=== PATIENT | female | born 1945 | race Caucasian/White ===

== ENCOUNTER 2017-02-06 07:57 | Emergency (ER) | payer MEDICARE, OTHER ==
[~2017-02-06] VITALS: Ht 182.9 cm; Wt 87.0 kg
[~2017-02-06 07:57] MED LIST: ATENOLOL25 MG PO; CO Q 1010 MG; CRESTOR5 MG PO; MULTI VIT PO; NEURONTIN600 MG PO; VITAMI17; VITAMIN B-12100 MCG; XANAX1 MG PO; ZPAK OR
[2017-02-06] MEDS ORDERED: PANTOPRAZOLE SO40 MG PO (08:17)
[2017-02-06] MEDS ORDERED: PRAMIPEXOLE0.5 MG PO (08:18)
[2017-02-06] MEDS ORDERED: LOSARTAN POTASS50 MG PO (08:19)
[2017-02-06] MEDS ORDERED: CELEBREX100 M1 PO (08:22)
[2017-02-06] MEDS ORDERED: PLAVIX75 MG PO (08:23)
[2017-02-06] MEDS ORDERED: ASPIRIN81 MG PO (08:23)
[2017-02-06] MEDS ORDERED: TRAZODONE50 MG PO (08:24)
[2017-02-06] MEDS ORDERED: CEPHALEXIN500 MG PO (09:58)
[2017-02-06 10:16] VITALS: BP 147/65
== END 2017-02-06 10:24 | disposition home or self-care (01) ==
LOC: ED 07:57
PROC: 0HCNXZZ Extirpation of Matter from Left Foot Skin, External Approach (ICD-10-PCS; principal; 2017-02-06)
DX: S91.342A Puncture wound with foreign body, left foot, initial encounter (principal); G62.9 Polyneuropathy, unspecified; W22.8XXA Striking against or struck by other objects, initial encounter; Y92.003 Bedroom of unspecified non-institutional (private) residence as the place of occurrence of the external cause

== ENCOUNTER 2017-08-07 11:41 | Observation (INO) | payer MEDICARE, OTHER ==
[~2017-08-07] VITALS: Ht 182.9 cm; Wt 94.8 kg
[~2017-08-07 11:41] MED LIST changes: +ASPIRIN81 MG PO; +CELEBREX100 M1 PO; +CEPHALEXIN500 MG PO; +LOSARTAN POTASS50 MG PO; +PANTOPRAZOLE SO40 MG PO; +PLAVIX75 MG PO; +PRAMIPEXOLE0.5 MG PO; +TRAZODONE50 MG PO
[2017-08-07 12:37] LABS: URINE BILIRUBIN - DIPSTICK NEGATIVE (NEGATIVE); URINE BLOOD DIPSTICK NEGATIVE (NEGATIVE); URINE COLOR YELLOW; URINE GLUCOSE - DIPSTICK 250 mg/dL (NEGATIVE); URINE KETONE NEGATIVE (NEGATIVE); URINE LEUK ESTERASE NEGATIVE (NEGATIVE); URINE NITRITE - DIPSTICK NEGATIVE (Negative); URINE PH 5.5 (4.5-8.0); URINE PROTEIN - DIPSTICK NEGATIVE (NEG-TRACE); URINE SPECIFIC GRAVITY 1.025; URINE UROBILINOGEN - DIPSTICK 0.2 E.U./dL (0.2)
[2017-08-07 12:40] LABS: HEMATOCRIT 44.1 % (37.0-47.0); IMMATURE GRANULOCYTES 0.4 % (0.0-1.0); MEAN CELL VOLUME 94.2 fL CALC (80.0-100.0); MEAN CORPUSCULAR HGB 32.1 pG CALC (26.0-32.0); NEUT# 5.25 thou/uL (2.00-7.15); RED BLOOD COUNT 4.68 mill/uL (4.20-5.60); RED CELL DISTRI WIDTH 13.8 % (11.5-15.5); URINE CLARITY CLEAR
[2017-08-07 12:54] LABS: ANION GAP 16 (6-22 (CALC)); BUN 21 mg/dL (8-23); BUN/CREATININE RATIO 31 (12-20 (CALC)); CARBON DIOXIDE 24 mmol/l (22-30); CHLORIDE 108 mmol/l (95-108); CREATININE 0.7 mg/dL (0.5-1.0); GFR > 60 ML/MIN (>=60 (CALC)); GFR FOR AFR.AMER. > 60 ML/MIN (>=60 (CALC)); LIPASE 66 u/l (23-300); POTASSIUM 4.2 mmol/l (3.5-5.1); SODIUM 143 mmol/l (137-146)
[2017-08-07 12:55] LABS: ALBUMIN 4.5 g/dL (3.2-5.0); ANION GAP 17 (6-22 (CALC)); BILIRUBIN, TOTAL 0.6 mg/dL (0.0-1.4); BUN 21 mg/dL (8-23); BUN/CREATININE RATIO 28 (12-20 (CALC)); CARBON DIOXIDE 24 mmol/l (22-30); CHLORIDE 107 mmol/l (95-108); CREATININE 0.7 mg/dL (0.5-1.0); GFR > 60 ML/MIN (>=60 (CALC)); GFR FOR AFR.AMER. > 60 ML/MIN (>=60 (CALC)); POTASSIUM 4.1 mmol/l (3.5-5.1); SGPT/ALT 82 u/l (11-66); SODIUM 143 mmol/l (137-146); TOTAL PROTEIN 7.2 g/dL (6.3-8.2)
[2017-08-07 13:04] LABS: ALKALINE PHOSPHATASE 100 u/l (38-126); SGOT/AST 106 u/l (9-36)
[2017-08-07 13:06] LABS: MYOGLOBIN 41 ng/mL (0 - 62)
[2017-08-07 17:48] VITALS: BP 144/86
[2017-08-07] MEDS ORDERED: AMOXICILLIN500 MG PO (18:20)
[2017-08-07 20:00] VITALS: BP 133/78
[2017-08-08 00:04] VITALS: BP 127/67
[2017-08-08 04:48] LABS: ALBUMIN 3.6 g/dL (3.2-5.0); ALKALINE PHOSPHATASE 81 u/l (38-126); ANION GAP 14 (6-22 (CALC)); BUN 17 mg/dL (8-23); BUN/CREATININE RATIO 23 (12-20 (CALC)); CARBON DIOXIDE 23 mmol/l (22-30); CHLORIDE 110 mmol/l (95-108); CREATININE 0.7 mg/dL (0.5-1.0); GFR > 60 ML/MIN (>=60 (CALC)); GFR FOR AFR.AMER. > 60 ML/MIN (>=60 (CALC)); POTASSIUM 3.8 mmol/l (3.5-5.1); SGOT/AST 47 u/l (9-36); SGPT/ALT 63 u/l (11-66); SODIUM 143 mmol/l (137-146); TOTAL PROTEIN 5.9 g/dL (6.3-8.2)
[2017-08-08 04:59] LABS: HEMATOCRIT 41.2 % (37.0-47.0); HEMOGLOBIN 13.9 g/dl (12.0-16.0); IMMATURE GRANULOCYTES 0.5 % (0.0-1.0); MEAN CELL VOLUME 94.5 fL CALC (80.0-100.0); MEAN CORPUSCULAR HGB 31.9 pG CALC (26.0-32.0); MEAN CORPUSCULAR HGB CONC 33.7 g/L CALC (32.0-36.0); NEUT# 3.16 thou/uL (2.00-7.15); RED BLOOD COUNT 4.36 mill/uL (4.20-5.60); RED CELL DISTRI WIDTH 13.5 % (11.5-15.5)
[2017-08-08 05:00] LABS: BILIRUBIN, TOTAL 0.9 mg/dL (0.0-1.4)
[2017-08-08 05:13] VITALS: BP 98/66
[2017-08-08 07:45] VITALS: BP 131/77
[2017-08-08 09:48] LABS: CHOLESTEROL HDL RATIO 3.3 (<4.4 (CALC))
[2017-08-08] MEDS ORDERED: CLOPIDOGREL75 MG PO (10:08)
[2017-08-08] MEDS ORDERED: BIOTIN5000 MC2 PO (10:09)
[2017-08-08] MEDS ORDERED: CELEBREX200 MG PO (10:10)
[2017-08-08] MEDS ORDERED: ATENOLOL50 MG PO (10:10)
[2017-08-08] MEDS ORDERED: GABAPENTIN100 MG PO (10:11)
[2017-08-08] MEDS ORDERED: LOSARTAN POT50 MG PO (10:14)
[2017-08-08] MEDS ORDERED: ROSUVASTATIN CA20 MG PO (10:14)
[2017-08-08] MEDS ORDERED: PRAMIPEXOLE0.5 MG PO (10:15)
[2017-08-08] MEDS ORDERED: MELATONIN MAXIM10 MG PO (10:17)
[2017-08-08] MEDS ORDERED: COQ-10400 MG PO (10:18)
[2017-08-08] MEDS ORDERED: VITAMIN D32000 UNI2 PO (10:19)
[2017-08-08] MEDS ORDERED: K-99595 MG PO (10:20)
[2017-08-08] MEDS ORDERED: GNP MELATONIN MA5 MG PO (10:21)
[2017-08-08] MEDS ORDERED: CHANTIX1 MG PO (10:23)
[2017-08-08] MEDS ORDERED: TURMERIC500 MG PO (10:24)
[2017-08-08 11:10] VITALS: BP 150/76
[2017-08-08] MEDS ORDERED: PEPCID20 MG PO (11:12)
== END 2017-08-08 13:24 | disposition home or self-care (01) ==
LOC: ED 11:41 → ED-I 16:40 → ED 16:55 → MS2 16:56
PROVIDERS: Family Medicine; Nurse Practitioner Family; ADMIT Internal Medicine; ATTEND Internal Medicine
DX: R07.9 Chest pain, unspecified (principal); I16.0 Hypertensive urgency; I10 Essential (primary) hypertension; K21.9 Gastro-esophageal reflux disease without esophagitis; G62.9 Polyneuropathy, unspecified; F17.210 Nicotine dependence, cigarettes, uncomplicated; E78.5 Hyperlipidemia, unspecified; K57.30 Diverticulosis of large intestine without perforation or abscess without bleeding

== ENCOUNTER 2019-08-14 12:12 | Observation (INO) | payer MEDICARE, OTHER ==
[~2019-08-14] VITALS: Ht 182.9 cm; Wt 96.0 kg
[~2019-08-14 12:12] MED LIST changes: +AMOXICILLIN500 MG PO; +ATENOLOL50 MG PO; +BIOTIN5000 MC2 PO; +CELEBREX200 MG PO; +CHANTIX1 MG PO; +CLOPIDOGREL75 MG PO; +COQ-10400 MG PO; +GABAPENTIN100 MG PO; +GNP MELATONIN MA5 MG PO; +K-99595 MG PO; +LOSARTAN POT50 MG PO; +MELATONIN MAXIM10 MG PO; +PEPCID20 MG PO; +ROSUVASTATIN CA20 MG PO; +TURMERIC500 MG PO; +VITAMIN D32000 UNI2 PO
[2019-08-14 13:37] LABS: HEMATOCRIT 47.1 % (37.0-47.0); HEMOGLOBIN 15.7 g/dl (12.0-16.0); IMMATURE GRANULOCYTES 0.3 % (0.0-5.0); MEAN CELL VOLUME 95.3 fL CALC (80.0-100.0); MEAN CORPUSCULAR HGB 31.8 pG CALC (26.0-32.0); MEAN CORPUSCULAR HGB CONC 33.3 g/L CALC (32.0-36.0); NEUT# 4.5 thou/uL (2.00-7.15); RED BLOOD COUNT 4.94 mill/uL (4.20-5.60); RED CELL DISTRI WIDTH 15.3 % (11.5-15.5)
[2019-08-14] MEDS ORDERED: TOLTERODINE TART2 MG PO ×2 (13:53→13:56)
[2019-08-14] MEDS ORDERED: ZETIA10 MG PO (13:54)
[2019-08-14] MEDS ORDERED: METOPROL TAR25 MG PO (13:54)
[2019-08-14] MEDS ORDERED: CITALOPRAM20 M1 (13:55)
[2019-08-14] MEDS ORDERED: ISOSORB DIN30 MG PO (13:55)
[2019-08-14] MEDS ORDERED: PLAVIX75 MG PO (13:57)
[2019-08-14] MEDS ORDERED: ASPIRIN325 MG PO (13:58)
[2019-08-14 14:13] LABS: ALBUMIN 4.2 g/dL (3.2-5.0); ALKALINE PHOSPHATASE 52 u/l (38-126); ANION GAP 11 (6-22 (CALC)); BILIRUBIN, TOTAL 1.2 mg/dL (0.0-1.4); BUN 18 mg/dL (8-23); BUN/CREATININE RATIO 22 (12-20 (CALC)); CARBON DIOXIDE 24 mmol/l (22-30); CHLORIDE 108 mmol/l (95-108); CREATININE 0.8 mg/dL (0.5-1.0); GFR > 60 ML/MIN (>=60 (CALC)); GFR FOR AFR.AMER. > 60 ML/MIN (>=60 (CALC)); POTASSIUM 4.1 mmol/l (3.5-5.1); SGOT/AST 40 u/l (9-36); SODIUM 139 mmol/l (137-146)
[2019-08-14 18:35] VITALS: BP 109/60
[2019-08-15 00:09] VITALS: BP 107/68
[2019-08-15 04:32] VITALS: BP 102/66
[2019-08-15 06:14] LABS: CHOLESTEROL HDL RATIO 2.2 (<4.4 (CALC)); MAGNESIUM 2.2 mg/dL (1.6-2.3)
[2019-08-15 07:36] VITALS: BP 133/64
[2019-08-15] MEDS ORDERED: NITROSTAT0.4 MG SL (11:11)
[2019-08-15 12:04] VITALS: BP 117/74
== END 2019-08-15 12:44 | disposition home or self-care (01) ==
LOC: ED 12:12 → ED-I 14:00 → ED 15:10 → MS2 15:11
PROVIDERS: Family Medicine; ADMIT Internal Medicine; ATTEND Internal Medicine
DX: R07.9 Chest pain, unspecified (principal); I25.10 Atherosclerotic heart disease of native coronary artery without angina pectoris; I10 Essential (primary) hypertension; K21.9 Gastro-esophageal reflux disease without esophagitis; E78.5 Hyperlipidemia, unspecified; G62.9 Polyneuropathy, unspecified; F17.200 Nicotine dependence, unspecified, uncomplicated; I25.2 Old myocardial infarction; Z95.5 Presence of coronary angioplasty implant and graft; Z79.02 Long term (current) use of antithrombotics/antiplatelets; Z79.82 Long term (current) use of aspirin; Z79.899 Other long term (current) drug therapy
CPT/HCPCS: G0378

== ENCOUNTER 2019-12-01 18:15 | Emergency (ER) | payer MEDICARE, OTHER ==
[~2019-12-01] VITALS: Ht 180.3 cm; Wt 89.5 kg
[~2019-12-01 18:15] MED LIST changes: +ASPIRIN325 MG PO; +CITALOPRAM20 M1; +ISOSORB DIN30 MG PO; +METOPROL TAR25 MG PO; +NITROSTAT0.4 MG SL; +TOLTERODINE TART2 MG PO; +ZETIA10 MG PO
[2019-12-01] MEDS ORDERED: ASPIRIN CHEWABL81 MG PO (18:34)
[2019-12-01] MEDS ORDERED: KLONOPIN0.5 M1 PO (18:35)
[2019-12-01] MEDS ORDERED: CRESTOR20 MG PO (18:36)
[2019-12-01] MEDS ORDERED: LASIX 40 MG TAB40 MG PO (18:36)
[2019-12-01] MEDS ORDERED: TOPROL XL50 MG PO (18:38)
[2019-12-01] MEDS ORDERED: PROTONIX40 M2 PO (18:39)
[2019-12-01 18:55] VITALS: BP 123/87
== END 2019-12-01 18:55 | disposition home or self-care (01) ==
LOC: ED 18:15
PROC: 0HQGXZZ Repair Left Hand Skin, External Approach (ICD-10-PCS; principal; 2019-12-01)
DX: S61.213A Laceration without foreign body of left middle finger without damage to nail, initial encounter (principal); I10 Essential (primary) hypertension; G62.9 Polyneuropathy, unspecified; F17.210 Nicotine dependence, cigarettes, uncomplicated; I25.2 Old myocardial infarction; W26.0XXA Contact with knife, initial encounter; Y93.G1 Activity, food preparation and clean up; Y92.000 Kitchen of unspecified non-institutional (private) residence as the place of occurrence of the external cause

== ENCOUNTER 2020-11-02 10:49 | Observation (INO) | payer MEDICARE, OTHER ==
[~2020-11-02] VITALS: Ht 177.8 cm; Wt 97.0 kg
[~2020-11-02 10:49] MED LIST changes: +ASPIRIN CHEWABL81 MG PO; +CRESTOR20 MG PO; +KLONOPIN0.5 M1 PO; +LASIX 40 MG TAB40 MG PO; +PROTONIX40 M2 PO; +TOPROL XL50 MG PO
--- NOTE | 2020-11-02 10:49 | NUR ---
TO ROOM FOR BEDSIDE TRIAGE VIA EMS
--- NOTE | 2020-11-02 11:30 | NUR ---
TREATMENTS COMPLETED AND WAS UNABLE TO ESTABLISH AN IV AT THIS TIME. LIMB ELEVATED. TWO HEMATOMAS NOTED ON THE TOP AND BOTTOM OF R EYE NOTED AND AN ABRASION NOTED ON THE BOTTOM OF THE R EYE. THE R KNEE IS SEVERLY ENGORGED WITH A HUGE HEMATOMA THAT IS BRUISED. PT IS HAVING SPASMS IN THE R LEG. AOX4. PERRLA. NO BLEEDING APPARENT IN ANY PART OF THE BODY.
[2020-11-02 11:41] LABS: HEMATOCRIT 44.6 % (37.0-47.0); HEMOGLOBIN 15.1 g/dl (12.0-16.0); IMMATURE GRANULOCYTES 0.1 % (0.0-5.0); MEAN CELL VOLUME 96.3 fL CALC (80.0-100.0); MEAN CORPUSCULAR HGB 32.6 pG CALC (26.0-32.0); MEAN CORPUSCULAR HGB CONC 33.9 g/dL CAL (32.0-36.0); NEUT# 5.64 thou/uL (2.00-7.15); RED BLOOD COUNT 4.63 mill/uL (4.20-5.60); RED CELL DISTRI WIDTH 13.2 % (11.5-15.5)
[2020-11-02 12:00] LABS: ALBUMIN 4.1 g/dL (3.2-5.0); ALKALINE PHOSPHATASE 69 u/l (38-126); ANION GAP 9 (6-22 (CALC)); BILIRUBIN, TOTAL 0.9 mg/dL (0.0-1.4); BUN 13 mg/dL (8-23); BUN/CREATININE RATIO 17 (12-20 (CALC)); CARBON DIOXIDE 26 mmol/l (22-30); CHLORIDE 104 mmol/l (95-108); CREATININE 0.8 mg/dL (0.5-1.0); GFR > 60 ML/MIN (>=60 (CALC)); GFR FOR AFR.AMER. > 60 ML/MIN (>=60 (CALC)); POTASSIUM 4.1 mmol/l (3.5-5.1); SGOT/AST 30 u/l (9-36); SODIUM 135 mmol/l (137-146); TOTAL PROTEIN 7.1 g/dL (6.3-8.2)
--- NOTE | 2020-11-02 12:20 | NUR ---
PT RECONNECTED TO MONITORING EQUIPMENT. PT RESTING ON THE STETCHER CONTINUES IN PAIN. EDU ON HOW LONG IT TAKES FOR IM MORPHINE TO START WORKING. A FRIEND OF HERS CONTINUES AT HER BEDSIDE
[2020-11-02 13:02] LABS: URINE BILIRUBIN - DIPSTICK NEGATIVE (NEGATIVE); URINE BLOOD DIPSTICK SMALL (NEGATIVE); URINE COLOR YELLOW; URINE GLUCOSE - DIPSTICK NEGATIVE (NEGATIVE); URINE KETONE NEGATIVE (NEGATIVE); URINE LEUK ESTERASE NEGATIVE (NEGATIVE); URINE PROTEIN - DIPSTICK NEGATIVE (NEG-TRACE); URINE SPECIFIC GRAVITY 1.015; URINE UROBILINOGEN - DIPSTICK 0.2 E.U./dL (0.2)
[2020-11-02 13:03] LABS: URINE NITRITE - DIPSTICK NEGATIVE (Negative)
[2020-11-02 13:04] LABS: URINE SQUAMOUS EPITHELIAL CELL FEW EPI/hpf (0-FEW); URINE WBC 0-2 WBC/hpf (0-5)
[2020-11-02] MEDS ORDERED: MULTI VIT PO (13:22)
[2020-11-02] MEDS ORDERED: LOSARTAN POTASS25 MG PO (13:22)
--- NOTE | 2020-11-02 13:40 | NUR ---
MD TRIED TO DRAIN SOME BLOOD OUT OF THE R KNEE. MINIMAL AMOUNT RETRIEVED. COMPRESSION DRESSING APPLIED, PMS+ IN THAT EXTREM. ICE APPLIED TO KNEE. KNEE CONTINUES TO BE ELEVATED
--- NOTE | 2020-11-02 14:49 | NUR ---
PT RESTING ON STRETCHER WITH FRIEND AT BEDSIDE. CALL LIGHT WITHIN REACH
--- NOTE | 2020-11-02 15:05 | NUR ---
REPORT RECEIVED FROM AMARARN
--- NOTE | 2020-11-02 15:10 | NUR ---
GAVE REPORT TO YESIKA
--- NOTE | 2020-11-02 15:20 | NUR ---
PT TRANSPORTED TO [facility] SURG STABLE AND IN NO DISTRESS. CARE ASSUMED TO REGGIE. Admission Note Report Given to: REGGIE Transported by: Wheelchair X Stretcher Transported with: X Nurse Transporter X Patent IV O2 X Design Director Location: ICU X MS2
[2020-11-02 15:25] VITALS: BP 133/80
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
--- NOTE | 2020-11-02 15:59 | NUR ---
NEW ORDERS RECEIVED FROM
--- NOTE | 2020-11-02 16:04 | NUR ---
XRAY AT BEDSIDE
--- NOTE | 2020-11-02 16:40 | NUR ---
PT MEDICATED WITH PRN LORTAB 5/325MG PO FOR RIGHT KNEE PAIN RATING 7/10 ON THE PAIN SCALE,WILL CONTINUE TO MONITOR FOR EFFECTIVENESS
--- NOTE | 2020-11-02 18:50 | NUR ---
REPORT RECEIVED FROM Oma GARVIN LPN, CARE OF PT ASSUMED AT THIS TIME.
[2020-11-02 19:15] VITALS: BP 123/77
--- NOTE | 2020-11-02 19:15 | NUR ---
PT SITTING UP IN BED FINISHING MEAL TRAY. PHYSICAL ASSESMENT COMPLETE. RIGHT SIDE PERIORBITAL EDEMA AND ECCHYMOSIS NOTED. RIGHT EYE IS SWOLLEN SHUT. RIGHT KNEE ELEVATED WITH COMPRESSION BANDAGE SECURED AND COLD COMPRESS OVER TOP. RLE C/M/S PRESENT AND INTACT. LUE #20G IV PATENT AND INFUSING 0.9% NACL @ 100ML/H. TELE #[id number] ON PT. PLAN OF CARE REVIEWED, VERBALIZES UNDERSTANDING. DENIES FURTHER NEEDS AT THIS TIME WHEN ASKED. CALL PEÑA WITHIN REACH, AGREES TO CALL PRN.
--- NOTE | 2020-11-02 19:31 | NUR ---
ORDERS FOR PT & OT CONSULT AND AM CBC, BMP, MG RECEIVED AND AKNOWLEGED VIA [employer].
--- NOTE | 2020-11-02 20:50 | NUR ---
PT ASSISTED TO STAND AND PIVOT TO BED SIDE COMMODE AND BACK TO BED. 400ML CLEAR YELLOW URINE EMPTIED FROM COMMODE.
--- NOTE | 2020-11-02 21:00 | NUR ---
EDUCATION PROVIDED ON PRN LORTAB FOR PAIN, PT VERBALIZES UNDERSTANDING. HOME MEDICATION LIST REVIEWED AND DISCUSSED WITH PT WHICH MEDICATIONS PROVIDER HAS CONTINUED AND HELD. PT VERBALIZES UNDERSTANDING. SCHEDULED MEDICATION ADMINISTERED, PRN LORTAB ADMINISTERED FOR C/O THROBBING PAIN TO R-PERIORBITAL AREA, R-WRIST, AND R-KNEE.
--- NOTE | 2020-11-02 21:30 | NUR ---
F/U PAIN LEVEL REPORTED 0/10.
[2020-11-03] VITALS: BP 99/51
--- NOTE | 2020-11-03 02:46 | NUR ---
PT REQUEST PAIN MEDICATION FOR R-KNEE SPASM 11/20. RLE C/M/S REMAINS INTACT. COMPRESSION BANDAGE IN PLACE. LORTAB ADMINISTERED, SEE E-MAR.
--- NOTE | 2020-11-03 03:17 | NUR ---
PT APPEARS TO BE SLEEPING COMFORTABLY, LAYING IN BED WITH EYES CLOSED, RESPIRATIONS REGUALR AND UNLABORED. NO APPARENT DISTRESS OR DISCOMFORT. CALL PEÑA REMAINS WITHIN REACH.
[2020-11-03 04:00] VITALS: BP 120/68
--- NOTE | 2020-11-03 05:05 | NUR ---
Belem GRAMAJO CONCRETE MIXER LOADER TRUCK MOUNTED AT BEDSIDE COLLECTING AM LABS.
[2020-11-03 05:46] LABS: HEMATOCRIT 41.8 % (37.0-47.0); HEMOGLOBIN 13.8 g/dl (12.0-16.0); MEAN CELL VOLUME 99.1 fL CALC (80.0-100.0); MEAN CORPUSCULAR HGB 32.7 pG CALC (26.0-32.0); RED BLOOD COUNT 4.22 mill/uL (4.20-5.60); RED CELL DISTRI WIDTH 13.5 % (11.5-15.5)
[2020-11-03 06:02] LABS: ANION GAP 9 (6-22 (CALC)); BUN 18 mg/dL (8-23); BUN/CREATININE RATIO 24 (12-20 (CALC)); CARBON DIOXIDE 24 mmol/l (22-30); CHLORIDE 108 mmol/l (95-108); CREATININE 0.8 mg/dL (0.5-1.0); GFR > 60 ML/MIN (>=60 (CALC)); GFR FOR AFR.AMER. > 60 ML/MIN (>=60 (CALC)); MAGNESIUM 2.2 mg/dL (1.6-2.3); POTASSIUM 4.1 mmol/l (3.5-5.1); SODIUM 137 mmol/l (137-146)
[2020-11-03 07:25] VITALS: BP 149/84
--- NOTE | 2020-11-03 09:50 | NUR ---
PT SEEN AWAKE, ALERT, ORIENTED X 3. LUNGS CLEAR, RA. PT WITH PAIN TO RIGHT KNEE, RIGHT EYE, RIGHT HAND PER FALL RECENTLY, MEDICATED NEEDED. DAUGHTER HAS CALLED FOR UPDATE, PROVIDED. AT THIS TIME PT IS AT CT SCAN FOR FOLLOW UP HEAD SCAN.
[2020-11-03 10:46] VITALS: BP 117/70
--- NOTE | 2020-11-03 15:01 | NUR ---
PT HAS HAD PHYSICAL THERAPIST AND OCCUPATIONAL THERAPIST AT BEDSIDE TODAY. PT AMBULATES WITH DISCOMFORT TO RIGHT KNEE.
[2020-11-03 15:17] VITALS: BP 116/72
--- NOTE | 2020-11-03 17:36 | NUR ---
PT MEDICATED FOR PAIN THIS AFTERNOON, STATES THAT SHE ACTUALLY SLEPT AFTER. NO ACUTE DISTRESS, PT UP WITH WALKER AND ASSISTANCE.
[2020-11-03 19:00] VITALS: BP 113/68
--- NOTE | 2020-11-03 20:00 | NUR ---
PATIENT SWITTING UP IN BED AT THIS TIME-AWAKE ALERT AND ORIENTEDX3. PATIENT WITH LARGE EECYMOTIC AREA AROUND HER RIGHT EYE AND FACE. PATIENT WITH TELE MONITOR IN PLACE-LAST READING WAS PACED AT 63. IV SITE TO LEFT UPPER ARM WITH NS PATENT AND INFUSING AT 100CC/HR. SITE APPEARS HEALTHY AT THIS TIME. SAFETY PRECAUTIONS REINFORCED. CALL LIGHT IN REACH. WILL CONT TO MONITOR.
--- NOTE | 2020-11-03 23:30 | NUR ---
PATIENT BACK IN BED AFTER USING THE BSC TO VOID. STATES THAT SHE NEEDS A STOOL SOFTNER AND OFFERED PATIENT MOM BUT STATES THAT IT IS TOO STRONG. PATIENT PROVIDED WITH WARM PRUNE JUICE INSTEAD. MEDICATED FOR RIGHT EYE, KNEE AND HAND PAIN WITH LORTAB 5/325MG. OFFERED PATIENT COLD PACK FOR HER EYE. SAFETY PRECAUTIONS REINFORCED. CALL LIGHT IN REACH. WILL CONT TO MONITOR.
[2020-11-04 00:14] VITALS: BP 115/68
--- NOTE | 2020-11-04 04:13 | NUR ---
PATIENT RESTING IN BED AT THIS TIME-EYES ARE CLOSED. REPS ARE EVEN AND UNLABORED. IVF PATENT AND INFUSING VIA LEFT UPPER ARM SITE AT 100CC/HR. TELE MONITOR IN PLACE. CALL LIGHT IN REACH. WILL CONT TO MONITOR.
[2020-11-04 04:28] VITALS: BP 137/80
--- NOTE | 2020-11-04 06:43 | NUR ---
PATIENT RESTING IN BED AT THIS TIME. C/O RIGHT FACE, RIGHT KNEE AND RIGHT HAND PAIN-10/10 ON PAIN SCALE. MEDICATED WITH LORTAB 5/325MG PO. TELE MONITOR IN PLACE. IVF PATENT AND INFUSING VIA LEFT UPPER ARM. CALL LIGHT IN REACH. WILL CONT TO MONITOR.
[2020-11-04 06:47] LABS: HEMATOCRIT 45.7 % (37.0-47.0); HEMOGLOBIN 14.8 g/dl (12.0-16.0); MEAN CELL VOLUME 99.8 fL CALC (80.0-100.0); MEAN CORPUSCULAR HGB 32.3 pG CALC (26.0-32.0); MEAN CORPUSCULAR HGB CONC 32.4 g/dL CAL (32.0-36.0); RED BLOOD COUNT 4.58 mill/uL (4.20-5.60); RED CELL DISTRI WIDTH 13.2 % (11.5-15.5)
[2020-11-04 07:12] LABS: ANION GAP 10 (6-22 (CALC)); BUN 15 mg/dL (8-23); BUN/CREATININE RATIO 18 (12-20 (CALC)); CARBON DIOXIDE 25 mmol/l (22-30); CHLORIDE 106 mmol/l (95-108); CREATININE 0.9 mg/dL (0.5-1.0); GFR > 60 ML/MIN (>=60 (CALC)); GFR FOR AFR.AMER. > 60 ML/MIN (>=60 (CALC)); MAGNESIUM 2.2 mg/dL (1.6-2.3); POTASSIUM 4.6 mmol/l (3.5-5.1); SODIUM 137 mmol/l (137-146)
[2020-11-04 07:27] VITALS: BP 157/90
--- NOTE | 2020-11-04 09:41 | NUR ---
PT AWAKE, ALERT, ORIENTED X 3. LUNGS CLEAR, RA. PT ABLE TO AMBULATE IN ROOM WITH WALKER AND ASSIST, HAS BEEN TO BSC AND BACK. ECCHYMOSIS TO RIGHT FACE COAL WEIGHER IN COLOR THAN YESTERDAY. PT PROVIDED WASHCLOTH FOR RIGHT EYE GRITTINESS AROUND EYE, STATES FEELS BETTER NOW. PT MEDICATED FOR PAIN LAST SHIFT, STATES PAIN IS DOWN FROM 10 TO 7-8.
[2020-11-04 10:19] VITALS: BP 133/82
[2020-11-04] MEDS ORDERED: LORTAB 5/3255 MG PO (12:51)
--- NOTE | 2020-11-04 14:03 | NUR ---
Patient did B LE AROM exercises in seated and supine position doing hip flexion, hip adduction, hip abduction, hamstring curls, knee extension, and ankle ROM for 10 repetitions x 3 sets with constant verbal and tactile cuing to help maintain proper limb positioning, decrease trick movements, and fall risks. Patient did log rolling bed mobility and sit to stand push off transfers for 2 to 3 reps with Min A x 1 to help decrease trick movements and fall risks (verbal and tactile cuing was also provided to promote efficient ADL participation), patient using RW for support.
--- NOTE | 2020-11-04 15:19 | NUR ---
PT HAS BEEN DISCHARGED TO HOME. PT'S DAUGHTER WAS HERE, HEARD INSTRUCTIONS THAT WERE PROVIDED TO PT, WILL DRIVE HER TO [facility]. PT LEAVES [facility] IN STABLE CONDITION, VERBALIZED UNDERSTANDING OF DC INSTRUCTIONS.
== END 2020-11-04 14:48 ==
LOC: ED 10:49 → ED-I 13:49 → ED 14:16 → MS2 14:17
PROVIDERS: Emergency Medicine; Nurse Practitioner; ADMIT Internal Medicine; ATTEND Internal Medicine
PROC: 0JJW3ZZ Inspection of Lower Extremity Subcutaneous Tissue and Fascia, Percutaneous Approach (ICD-10-PCS; principal; 2020-11-02)
DX: S00.11XA Contusion of right eyelid and periocular area, initial encounter (principal); S80.01XA Contusion of right knee, initial encounter; S00.81XA Abrasion of other part of head, initial encounter; H11.31 Conjunctival hemorrhage, right eye; R53.1 Weakness; I10 Essential (primary) hypertension; K21.9 Gastro-esophageal reflux disease without esophagitis; G62.9 Polyneuropathy, unspecified; I25.10 Atherosclerotic heart disease of native coronary artery without angina pectoris; E78.5 Hyperlipidemia, unspecified; I25.2 Old myocardial infarction; F41.9 Anxiety disorder, unspecified; F17.200 Nicotine dependence, unspecified, uncomplicated; W01.0XXA Fall on same level from slipping, tripping and stumbling without subsequent striking against object, initial encounter; Y92.71 Barn as the place of occurrence of the external cause; Z95.0 Presence of cardiac pacemaker; Z95.5 Presence of coronary angioplasty implant and graft; Z79.02 Long term (current) use of antithrombotics/antiplatelets; Z79.82 Long term (current) use of aspirin; Z20.822 Contact with and (suspected) exposure to COVID-19
CPT/HCPCS: G0378; J2060